=== PATIENT | male | born 1960 | race Caucasian/White ===

== ENCOUNTER 2020-07-02 06:56 | Day surgery (SDC) | payer BC ==
[~2020-07-02 06:56] MED LIST: Midazolam 1 MG/ML 2 ML SDV ONE; fentaNYL 100 MCG/2 ML SDV ONE
[2020-07-02] MEDS ORDERED: fentaNYL 100 MCG/2 ML SDV IV ONE ×5 (06:57→08:10)
[2020-07-02] MEDS ORDERED: Midazolam 1 MG/ML 2 ML SDV IV ONE ×7 (06:57→08:07)
[2020-07-02] MEDS ORDERED: Dextrose 5%-0.45% NaCl 1,000 ML IV SCH (07:15)
--- NOTE | 2020-07-02 12:34 | OR ---
DATE: 07/02/2020 PROCEDURE PERFORMED: Total colonoscopy, NBI, and multiple cold snare polypectomies. INSTRUMENT USED: PCF-H180DL Olympus video colonoscope. PREMEDICATIONS: Fentanyl 150 mcg intravenous, Versed 4 mg intravenous. Nasal O2 cannula. The procedure was done under pulse oximetry, BP recording, and laboratory miller. INDICATION: The patient with previous colonic tubular adenomata. Surveillance colonoscopic examination is done for detection of any polypoid lesions and removal, endoscopic hemostasis therapy if needed. DESCRIPTION OF PROCEDURE: Initial rectal exam showed BPH. Rigid anoscopy was normal. The colonoscope was passed with ease up to the ileocecal area. Photographs were taken of the cecum, identified by landmarks of appendiceal orifice and double bulged ileocecal folds, ileocecal lipomatosis noted. No bleeding was noted from any of the visualized areas at the commencement of the examination. Bowel preparation was found to be adequate, [place] scale 2 in all the regions, total number 6. No stricture. No vascular ectasia. No large isolated ulcerations seen. No evidence of diffuse inflammatory bowel disease in the form of friability, contact bleeding, or ulcerations. In the proximal transverse colon and distal descending colon, 5 mm sized benign-appearing polyps were noted, NBI views were obtained, photographs were taken, cold snare polypectomies were done, the tissues were retrieved and sent for histopathology. Probing the proximal sides of folds and flexures using adequate distention and clearing up the stool material, withdrawal of the scope was made, cecum to rectum time over 6 minutes. No bleeding was noted from any of the visualized areas at the completion of examination. IMPRESSION: 1. Diverticulosis. 2. Multiple colonic polyps. 3. Ileocecal lipomatosis. The patient tolerated the procedure well. [facility] /[id number]
--- NOTE | 2020-07-02 17:38 | LETTER ---
07/02/2020 RE: HERO VELÁSQUEZ : 1960 Keely Macias PA-C [address] [place] [id number]. Dear Ms. Macias: Mr. Hero Velásquez had colonoscopic examination done this morning and he tolerated the procedure well. I herewith send a copy of the endoscopy note and photographs for your review. Thank you. Sincerely, [facility] /[id number]
== END 2020-07-02 10:29 | disposition home or self-care (01) ==
LOC: DL.ENDO 06:56
PROVIDERS: ATTEND Internal Medicine Gastroenterology
DX: Z12.11 Encounter for screening for malignant neoplasm of colon (principal); D12.3 Benign neoplasm of transverse colon; D12.4 Benign neoplasm of descending colon; K57.30 Diverticulosis of large intestine without perforation or abscess without bleeding; E88.2 Lipomatosis, not elsewhere classified; N40.0 Benign prostatic hyperplasia without lower urinary tract symptoms; H91.90 Unspecified hearing loss, unspecified ear; Z86.010 Personal history of colon polyps; Z88.8 Allergy status to other drugs, medicaments and biological substances; Z87.19 Personal history of other diseases of the digestive system; Z98.890 Other specified postprocedural states
CPT/HCPCS: 45385; J2250; J3010; J7042